=== PATIENT | female | born 1965 | race Caucasian/White ===

== ENCOUNTER 2021-09-18 20:36 | Emergency (ER) | payer BC ==
[~2021-09-18] VITALS: Ht 170.2 cm; Wt 61.0 kg
[~2021-09-18 20:36] MED LIST: ADVIL200 MG PO; ALLEGRA ALLERGY60 MG PO; BENADRYL25 MG PO; BENTYL; BENTYL10 MG PO; CEPHALEXIN500 MG PO; CLARITIN10 M2 OR; COMPAZINE10 MG PO; CYMBALTA20 MG PO; DILAUDID 2MG2 MG/TA1 PO; EFFEXOR XR75 MG PO; ELAVIL25 M1 PO; LOMOTIL2.5 MG PO; LORTAB 7.5-3251 TAB PO; NITROFURANTN100 MG PO; NORCO1 TA1 PO; ONDANSETRON4 MG PO; PEPCID40 MG PO; PHENERGAN25 MG RE; PHENERGAN25 MG/TAB PO; PROVERA5 MG PO; PSEUDOEPHEDR30 MG PO; PYRIDIUM200 MG PO; REGLAN10 MG PO; TAM75CAP PO; TORADOL PO; TRAMADOL HCL50 MG PO; ULTRAM50 M1 PO; XANAX0.25 MG PO; ZANTAC 36010 MG PO; ZYRTEC10 M3 PO
[2021-09-18 22:22] VITALS: BP 112/70
[2021-09-18 22:30] VITALS: BP 117/61
[2021-09-18 23:01] VITALS: BP 132/74
[2021-09-18 23:20] LABS: HEMATOCRIT 40.1 % (37.0-47.0); HEMOGLOBIN 13.9 g/dl (12.0-16.0); IMMATURE GRANULOCYTES 0.2 % (0.0-5.0); MEAN CORPUSCULAR HGB 31.9 pG CALC (26.0-32.0); MEAN CORPUSCULAR HGB CONC 34.7 g/dL CAL (32.0-36.0); NEUT# 3.88 thou/uL (2.00-7.15); RED BLOOD COUNT 4.36 mill/uL (4.20-5.60); RED CELL DISTRI WIDTH 11.5 % (11.5-15.5)
[2021-09-18 23:30] VITALS: BP 124/68
[2021-09-18 23:36] LABS: ALBUMIN 4.4 g/dL (3.2-5.0); ALKALINE PHOSPHATASE 70 u/l (38-126); ANION GAP 17 (6-22 (CALC)); BILIRUBIN, TOTAL 0.2 mg/dL (0.0-1.4); BUN 13 mg/dL (7-17); BUN/CREATININE RATIO 19 (12-20 (CALC)); CARBON DIOXIDE 14 mmol/l (22-30); CHLORIDE 112 mmol/l (95-108); CREATININE 0.7 mg/dL (0.5-1.0); GFR FOR AFR.AMER. > 60 ML/MIN (>=60 (CALC)); GFR OTHER RACES > 60 ML/MIN (>=60 (CALC)); POTASSIUM 3.3 mmol/l (3.5-5.1); SGOT/AST 26 u/l (14-36); SODIUM 140 mmol/l (137-146)
[2021-09-18] MEDS ORDERED: GABAPENTIN100 MG PO (23:40)
[2021-09-18] MEDS ORDERED: PAXLOVID PO (23:43)
[2021-09-19 00:30] VITALS: BP 112/60
[2021-09-19 00:40] VITALS: BP 112/60
== END 2021-09-19 00:40 | disposition home or self-care (01) | DRG 179 ==
LOC: ED 20:36
PROVIDERS: Emergency Medicine
DX: U07.1 COVID-19 (principal); R50.9 Fever, unspecified; R05.9 Cough, unspecified

== ENCOUNTER 2022-03-26 13:27 | Emergency (ER) | payer OTHER ==
[~2022-03-26] VITALS: Ht 170.2 cm; Wt 63.5 kg
[~2022-03-26 13:27] MED LIST changes: +GABAPENTIN100 MG PO; +PAXLOVID PO
[2022-03-26 14:45] LABS: BASO% 1.1 % (0-3); HEMOGLOBIN 12.6 g/dl (12.0-16.0); IMMATURE GRANULOCYTES 0.2 % (0.0-5.0); LYMPH% 23.8 % (15-41); MEAN CELL VOLUME 92.3 fL CALC (80.0-100.0); MEAN CORPUSCULAR HGB 31.4 pG CALC (26.0-32.0); MEAN CORPUSCULAR HGB CONC 34.1 g/dL CAL (32.0-36.0); MONO% 6.9 % (2-13); NEUT# 3.36 thou/uL (2.00-7.15); RED BLOOD COUNT 4.01 mill/uL (4.20-5.60); RED CELL DISTRI WIDTH 11.7 % (11.5-15.5)
[2022-03-26 15:08] LABS: ALBUMIN 4.4 g/dL (3.2-5.0); ALKALINE PHOSPHATASE 71 u/l (38-126); BUN 8 mg/dL (7-17); BUN/CREATININE RATIO 12 (12-20 (CALC)); CHLORIDE 111 mmol/l (95-108); CREATININE 0.6 mg/dL (0.5-1.0); GFR FOR AFR.AMER. > 60 ML/MIN (>=60 (CALC)); GFR OTHER RACES > 60 ML/MIN (>=60 (CALC)); POTASSIUM 3.8 mmol/l (3.5-5.1); SGOT/AST 27 u/l (14-36); SODIUM 142 mmol/l (137-146); TOTAL PROTEIN 7.2 g/dL (6.3-8.2)
[2022-03-26 15:09] LABS: ANION GAP 13 (6-22 (CALC)); CARBON DIOXIDE 22 mmol/l (22-30)
[2022-03-26] MEDS ORDERED: PREDNISONE10 MG PO (15:47)
[2022-03-26] MEDS ORDERED: TAM75CAP PO (15:47)
[2022-03-26] MEDS ORDERED: LEVOCETIRIZINE D5 MG PO (15:47)
[2022-03-26 17:35] VITALS: BP 138/73
== END 2022-03-26 17:37 | disposition home or self-care (01) | DRG 195 ==
LOC: ED 13:27
PROVIDERS: Family Medicine
DX: J10.1 Influenza due to other identified influenza virus with other respiratory manifestations (principal); M25.50 Pain in unspecified joint; Z20.822 Contact with and (suspected) exposure to COVID-19; R07.9 Chest pain, unspecified

== ENCOUNTER 2022-06-29 20:57 | Emergency (ER) | payer OTHER ==
[~2022-06-29] VITALS: Ht 170.2 cm; Wt 135.0 kg
[~2022-06-29 20:57] MED LIST changes: +LEVOCETIRIZINE D5 MG PO; +PREDNISONE10 MG PO
[2022-06-29 21:03] VITALS: BP 144/68
[2022-06-29 22:09] LABS: BASO% 0.4 % (0-3); EOS% 0.4 % (0-8); HEMATOCRIT 42.1 % (37.0-47.0); HEMOGLOBIN 14.1 g/dl (12.0-16.0); IMMATURE GRANULOCYTES 0.3 % (0.0-5.0); LYMPH% 13.1 % (15-41); MEAN CELL VOLUME 92.9 fL CALC (80.0-100.0); MEAN CORPUSCULAR HGB 31.1 pG CALC (26.0-32.0); MEAN CORPUSCULAR HGB CONC 33.5 g/dL CAL (32.0-36.0); MONO% 7.3 % (2-13); NEUT# 5.63 thou/uL (2.00-7.15); NEUT% 78.5 % (42-76); RED BLOOD COUNT 4.53 mill/uL (4.20-5.60); RED CELL DISTRI WIDTH 11.6 % (11.5-15.5)
[2022-06-29 22:14] LABS: ALBUMIN 4.6 g/dL (3.2-5.0); ALKALINE PHOSPHATASE 77 u/l (38-126); ANION GAP 16 (6-22 (CALC)); BUN 9 mg/dL (7-17); BUN/CREATININE RATIO 14 (12-20 (CALC)); CARBON DIOXIDE 26 mmol/l (22-30); CHLORIDE 103 mmol/l (95-108); CREATININE 0.7 mg/dL (0.5-1.0); GFR FOR AFR.AMER. > 60 ML/MIN (>=60 (CALC)); GFR OTHER RACES > 60 ML/MIN (>=60 (CALC)); SGOT/AST 25 u/l (14-36); SODIUM 141 mmol/l (137-146); TOTAL PROTEIN 7.3 g/dL (6.3-8.2)
[2022-06-29 22:19] VITALS: BP 129/73
[2022-06-29 22:20] LABS: BILIRUBIN, TOTAL 0.4 mg/dL (0.02-1.3)
[2022-06-29 22:45] VITALS: BP 135/52
[2022-06-29 23:00] VITALS: BP 132/73
[2022-06-29] MEDS ORDERED: FIORICET PO (23:14)
[2022-06-29 23:15] VITALS: BP 134/66
[2022-06-29] MEDS ORDERED: ONDANSETRON4 MG PO (23:18)
[2022-06-29 23:31] VITALS: BP 116/65
== END 2022-06-29 23:37 | disposition home or self-care (01) | DRG 103 ==
LOC: ED 20:57
PROVIDERS: Emergency Medicine
DX: G43.909 Migraine, unspecified, not intractable, without status migrainosus (principal)

== ENCOUNTER 2022-08-20 11:05 | Emergency (ER) | payer OTHER ==
[2022-08-20] VITALS (20 sets, daily range): BP systolic 109–141; BP diastolic 53–92
[~2022-08-20] VITALS: Ht 170.2 cm; Wt 59.0 kg
[~2022-08-20 11:05] MED LIST changes: +FIORICET PO
[2022-08-20 12:38] LABS: EOS% 3.9 % (0-8); HEMATOCRIT 38.9 % (37.0-47.0); HEMOGLOBIN 12.8 g/dl (12.0-16.0); IMMATURE GRANULOCYTES 0.2 % (0.0-5.0); MEAN CELL VOLUME 94.6 fL CALC (80.0-100.0); MEAN CORPUSCULAR HGB 31.1 pG CALC (26.0-32.0); MEAN CORPUSCULAR HGB CONC 32.9 g/dL CAL (32.0-36.0); MONO% 7.3 % (2-13); NEUT# 2.92 thou/uL (2.00-7.15); NEUT% 60.6 % (42-76); RED BLOOD COUNT 4.11 mill/uL (4.20-5.60); RED CELL DISTRI WIDTH 11.6 % (11.5-15.5)
[2022-08-20 12:41] LABS: ALBUMIN 4.7 g/dL (3.2-5.0); ALKALINE PHOSPHATASE 72 u/l (38-126); ANION GAP 15 (6-22 (CALC)); BUN 7 mg/dL (7-17); BUN/CREATININE RATIO 11 (12-20 (CALC)); CARBON DIOXIDE 22 mmol/l (22-30); CHLORIDE 110 mmol/l (95-108); CREATININE 0.6 mg/dL (0.5-1.0); GFR FOR AFR.AMER. > 60 ML/MIN (>=60 (CALC)); GFR OTHER RACES > 60 ML/MIN (>=60 (CALC)); LIPASE 260 u/l (23-300); POTASSIUM 3.3 mmol/l (3.5-5.1); SGOT/AST 28 u/l (14-36); SODIUM 143 mmol/l (137-146); TOTAL PROTEIN 7.3 g/dL (6.3-8.2)
[2022-08-20 12:42] LABS: BILIRUBIN, TOTAL 0.2 mg/dL (0.02-1.3)
[2022-08-20 15:01] LABS: URINE BILIRUBIN - DIPSTICK NEGATIVE (NEGATIVE); URINE BLOOD DIPSTICK TRACE-INTACT (NEGATIVE); URINE COLOR YELLOW; URINE GLUCOSE - DIPSTICK NEGATIVE (NEGATIVE); URINE KETONE TRACE mg/dL (NEGATIVE); URINE LEUK ESTERASE NEGATIVE (NEGATIVE); URINE NITRITE - DIPSTICK NEGATIVE (Negative); URINE PROTEIN - DIPSTICK NEGATIVE (NEG-TRACE); URINE UROBILINOGEN - DIPSTICK 0.2 E.U./dL (0.2)
[2022-08-20] MEDS ORDERED: ONDANSETRON4 MG PO (15:31)
[2022-08-20] MEDS ORDERED: DICYCLOMINE10 MG PO (15:31)
[2022-08-20] MEDS ORDERED: AMOX/K CLAV875 M1 PO (15:31)
== END 2022-08-20 16:30 | disposition home or self-care (01) | DRG 392 ==
LOC: ED 11:05
PROVIDERS: Nurse Practitioner
DX: R10.84 Generalized abdominal pain (principal); K58.9 Irritable bowel syndrome, unspecified

== ENCOUNTER 2022-09-29 18:13 | Emergency (ER) | payer OTHER ==
[~2022-09-29] VITALS: Ht 167.6 cm; Wt 56.6 kg
[~2022-09-29 18:13] MED LIST changes: +AMOX/K CLAV875 M1 PO; +DICYCLOMINE10 MG PO
[2022-09-29 19:50] VITALS: BP 134/69
[2022-09-29 20:00] VITALS: BP 121/68
[2022-09-29 20:15] VITALS: BP 120/60
[2022-09-29] MEDS ORDERED: PROMETHAZINE HY25 M1 PO (20:28)
[2022-09-29] MEDS ORDERED: TOPIRAMATE25 MG PO (20:28)
[2022-09-29] MEDS ORDERED: IMITREX100 MG PO (20:29)
[2022-09-29 20:33] LABS: EOS% 7.1 % (0-8); HEMATOCRIT 35.5 % (37.0-47.0); HEMOGLOBIN 11.8 g/dl (12.0-16.0); LYMPH% 29.4 % (15-41); MEAN CELL VOLUME 92.7 fL CALC (80.0-100.0); MEAN CORPUSCULAR HGB 30.8 pG CALC (26.0-32.0); MEAN CORPUSCULAR HGB CONC 33.2 g/dL CAL (32.0-36.0); NEUT# 2.55 thou/uL (2.00-7.15); NEUT% 53.5 % (42-76); RED BLOOD COUNT 3.83 mill/uL (4.20-5.60); RED CELL DISTRI WIDTH 11.7 % (11.5-15.5)
[2022-09-29 20:44] LABS: ALBUMIN 3.9 g/dL (3.2-5.0); ALKALINE PHOSPHATASE 61 u/l (38-126); BUN 11 mg/dL (7-17); BUN/CREATININE RATIO 14 (12-20 (CALC)); CARBON DIOXIDE 20 mmol/l (22-30); CHLORIDE 113 mmol/l (95-108); CREATININE 0.7 mg/dL (0.5-1.0); GFR FOR AFR.AMER. > 60 ML/MIN (>=60 (CALC)); GFR OTHER RACES > 60 ML/MIN (>=60 (CALC)); LIPASE 200 u/l (23-300); SGOT/AST 19 u/l (14-36); SODIUM 141 mmol/l (137-146); TOTAL PROTEIN 6.2 g/dL (6.3-8.2)
[2022-09-29 20:46] LABS: ANION GAP 12 (6-22 (CALC)); BILIRUBIN, TOTAL 0.3 mg/dL (0.02-1.3); POTASSIUM 4.1 mmol/l (3.5-5.1)
[2022-09-29 22:12] VITALS: BP 140/56
[2022-09-29 22:23] LABS: URINE COLOR YELLOW; URINE GLUCOSE - DIPSTICK NEGATIVE (NEGATIVE)
[2022-09-29 22:24] LABS: URINE BILIRUBIN - DIPSTICK NEGATIVE (NEGATIVE); URINE BLOOD DIPSTICK NEGATIVE (NEGATIVE); URINE KETONE Negative (NEGATIVE); URINE LEUK ESTERASE NEGATIVE (NEGATIVE); URINE NITRITE - DIPSTICK NEGATIVE (Negative); URINE PROTEIN - DIPSTICK NEGATIVE (NEG-TRACE); URINE SPECIFIC GRAVITY <=1.005; URINE UROBILINOGEN - DIPSTICK 0.2 E.U./dL (0.2)
[2022-09-29 23:38] VITALS: BP 125/59
[2022-09-29] MEDS ORDERED: LEVSIN/SL0.125 MG SL (23:59)
[2022-09-30] VITALS: BP 117/61
[2022-09-30 00:15] VITALS: BP 117/61
== END 2022-09-30 00:30 | disposition home or self-care (01) | DRG 392 ==
LOC: ED 18:13
PROVIDERS: Family Medicine
DX: R10.31 Right lower quadrant pain (principal); K58.9 Irritable bowel syndrome, unspecified
CPT/HCPCS: Q9967

== ENCOUNTER 2022-10-30 10:49 | Emergency (ER) | payer OTHER ==
[~2022-10-30] VITALS: Ht 167.6 cm; Wt 54.4 kg
[2022-10-30] VITALS (10 sets, daily range): BP systolic 112–140; BP diastolic 53–76
[~2022-10-30 10:49] MED LIST changes: +IMITREX100 MG PO; +LEVSIN/SL0.125 MG SL; +PROMETHAZINE HY25 M1 PO; +TOPIRAMATE25 MG PO
[2022-10-30 11:21] LABS: BASO% 1.3 % (0-3); EOS% 8.9 % (0-8); HEMATOCRIT 35.8 % (37.0-47.0); HEMOGLOBIN 12.1 g/dl (12.0-16.0); IMMATURE GRANULOCYTES 0.2 % (0.0-5.0); LYMPH% 27.7 % (15-41); MEAN CELL VOLUME 91.8 fL CALC (80.0-100.0); MEAN CORPUSCULAR HGB CONC 33.8 g/dL CAL (32.0-36.0); MONO% 8.9 % (2-13); NEUT# 2.37 thou/uL (2.00-7.15); RED BLOOD COUNT 3.9 mill/uL (4.20-5.60); RED CELL DISTRI WIDTH 11.5 % (11.5-15.5)
[2022-10-30] MEDS ORDERED: CLARITIN-D1 TA4 PO (11:26)
[2022-10-30] MEDS ORDERED: ADVIL200 MG PO (11:28)
[2022-10-30 11:32] LABS: ALKALINE PHOSPHATASE 69 u/l (38-126); ANION GAP 15 (6-22 (CALC)); BILIRUBIN, TOTAL 0.3 mg/dL (0.02-1.3); BUN 9 mg/dL (7-17); BUN/CREATININE RATIO 12 (12-20 (CALC)); CARBON DIOXIDE 19 mmol/l (22-30); CHLORIDE 110 mmol/l (95-108); CREATININE 0.8 mg/dL (0.5-1.0); GFR FOR AFR.AMER. > 60 ML/MIN (>=60 (CALC)); GFR OTHER RACES > 60 ML/MIN (>=60 (CALC)); LIPASE 173 u/l (23-300); POTASSIUM 3.8 mmol/l (3.5-5.1); SGOT/AST 26 u/l (14-36); SODIUM 140 mmol/l (137-146); TOTAL PROTEIN 6.8 g/dL (6.3-8.2)
[2022-10-30 13:06] LABS: URINE BILIRUBIN - DIPSTICK Negative (NEGATIVE); URINE BLOOD DIPSTICK Trace-intact (NEGATIVE); URINE GLUCOSE - DIPSTICK Negative (NEGATIVE); URINE KETONE Negative (NEGATIVE); URINE LEUK ESTERASE Negative (NEGATIVE); URINE NITRITE - DIPSTICK Negative (Negative); URINE PROTEIN - DIPSTICK Negative (NEG-TRACE); URINE UROBILINOGEN - DIPSTICK 0.2 E.U./dL (0.2)
[2022-10-30 13:08] LABS: URINE COLOR Yellow
== END 2022-10-30 13:50 | disposition home or self-care (01) | DRG 392 ==
LOC: ED 10:49
PROVIDERS: Family Medicine
DX: R10.31 Right lower quadrant pain (principal)

== ENCOUNTER 2023-09-05 14:27 | Emergency (ER) | payer OTHER ==
[~2023-09-05] VITALS: Ht 170.2 cm; Wt 56.7 kg
[~2023-09-05 14:27] MED LIST changes: +CLARITIN-D1 TA4 PO; +DICYCLOMINE HYD10 MG PO; +MIRALAX17 GM PO; +PROTONIX40 M2 PO
[2023-09-05] MEDS ORDERED: FLEXERIL5 M1 PO (14:47)
[2023-09-05] MEDS ORDERED: predniSONE 20 MG/TAB PO ONE (15:10)
[2023-09-05] MEDS ORDERED: ORPHENADRINE CITRATE 30 MG/ML AMP IM ONE (15:10)
[2023-09-05] MEDS ORDERED: ONDANSETRON 4 MG/TAB ODT SL ONE (15:10)
[2023-09-05] MEDS ORDERED: KETOROLAC TROMETHAMINE 30 MG/ML SDV IM ONE (15:10)
[2023-09-05 15:34] LABS: URINE BILIRUBIN - DIPSTICK Negative (NEGATIVE); URINE BLOOD DIPSTICK Trace-intact (NEGATIVE); URINE GLUCOSE - DIPSTICK Negative (NEGATIVE); URINE KETONE Negative (NEGATIVE); URINE LEUK ESTERASE Negative (NEGATIVE); URINE NITRITE - DIPSTICK Negative (Negative); URINE PROTEIN - DIPSTICK Negative (NEG-TRACE); URINE SPECIFIC GRAVITY <=1.005; URINE UROBILINOGEN - DIPSTICK 0.2 E.U./dL (0.2)
[2023-09-05 15:35] LABS: URINE COLOR Yellow
[2023-09-05] MEDS ORDERED: METHOCARBAMOL500 MG PO (16:43)
[2023-09-05] MEDS ORDERED: NAPROXEN500 MG PO (16:43)
[2023-09-05] MEDS ORDERED: PREDNISONE10 MG PO (16:43)
[2023-09-05 16:55] VITALS: BP 128/59
== END 2023-09-05 17:17 | disposition home or self-care (01) ==
LOC: ED 14:27
PROVIDERS: Nurse Practitioner
DX: M54.16 Radiculopathy, lumbar region (principal)

== ENCOUNTER 2024-03-09 21:48 | Emergency (ER) | payer OTHER ==
[~2024-03-09] VITALS: Ht 170.2 cm; Wt 57.0 kg
[~2024-03-09 21:48] MED LIST changes: +FLEXERIL5 M1 PO; +METHOCARBAMOL500 MG PO; +NAPROXEN500 MG PO
[2024-03-09] MEDS ORDERED: SODIUM CHLORIDE 0.9% 1,000 ML IV STA (22:33)
[2024-03-09] MEDS ORDERED: PROMETHAZINE HCL 25 MG/ML AMP IV ONE (22:35)
[2024-03-09] MEDS ORDERED: KETOROLAC TROMETHAMINE 30 MG/ML SDV IV ONE (22:35)
[2024-03-09] MEDS ORDERED: MULTIPLE VITAMIN 10 ML,THIAMINE HCL 100 MG in SODIUM CHLORIDE 0.9% 1,000 ML IV ONE (22:55)
[2024-03-09 22:58] LABS: EOS% 4.5 % (0-8); HEMATOCRIT 35.6 % (37.0-47.0); HEMOGLOBIN 11.8 g/dl (12.0-16.0); IMMATURE GRANULOCYTES 0.2 % (0.0-5.0); LYMPH% 29.9 % (15-41); MEAN CELL VOLUME 94.4 fL CALC (80.0-100.0); MEAN CORPUSCULAR HGB 31.3 pG CALC (26.0-32.0); MEAN CORPUSCULAR HGB CONC 33.1 g/dL CAL (32.0-36.0); NEUT# 2.71 thou/uL (2.00-7.15); NEUT% 55.4 % (42-76); RED BLOOD COUNT 3.77 mill/uL (4.20-5.60); RED CELL DISTRI WIDTH 11.8 % (11.5-15.5)
[2024-03-09 22:59] LABS: ALBUMIN 4.2 g/dL (3.2-5.0); CREATININE 1.2 mg/dL (0.5-1.0); POTASSIUM 3.9 mmol/l (3.5-5.1); TOTAL PROTEIN 6.7 g/dL (6.3-8.2)
[2024-03-09 23:00] LABS: BILIRUBIN, TOTAL 0.3 mg/dL (0.02-1.3)
[2024-03-10 01:06] LABS: URINE BILIRUBIN - DIPSTICK Negative (NEGATIVE); URINE BLOOD DIPSTICK Negative (NEGATIVE); URINE GLUCOSE - DIPSTICK Negative (NEGATIVE); URINE KETONE Negative (NEGATIVE); URINE LEUK ESTERASE Negative (NEGATIVE); URINE NITRITE - DIPSTICK Negative (Negative); URINE PH 7.5 (4.5-8.0); URINE PROTEIN - DIPSTICK Negative (NEG-TRACE); URINE SPECIFIC GRAVITY 1.015; URINE UROBILINOGEN - DIPSTICK 0.2 E.U./dL (0.2)
[2024-03-10 01:17] LABS: URINE COLOR Yellow
[2024-03-10 02:02] VITALS: BP 127/66
== END 2024-03-10 02:02 | disposition home or self-care (01) | DRG 392 ==
LOC: ED 21:48
PROVIDERS: Family Medicine
DX: R10.12 Left upper quadrant pain (principal); R11.0 Nausea; R06.02 Shortness of breath; R53.83 Other fatigue; K58.9 Irritable bowel syndrome, unspecified
CPT/HCPCS: J2550; J3411; Q9967

== ENCOUNTER 2024-04-14 14:12 | Emergency (ER) | payer OTHER ==
[~2024-04-14] VITALS: Ht 170.2 cm; Wt 56.6 kg
[2024-04-14] MEDS ORDERED: methylPREDNISolone SODIUM SUCC 125 MG/2 ML SDV IM ONE (14:30)
[2024-04-14] MEDS ORDERED: ONDANSETRON 4 MG/TAB ODT SL ONE (14:30)
[2024-04-14] MEDS ORDERED: FAMOTIDINE 20 MG/TAB PO ONE (14:30)
[2024-04-14] MEDS ORDERED: DiphenhydrAMINE HCL 50 MG/ML SDV IM ONE ×2 (14:30→14:35)
[2024-04-14] MEDS ORDERED: OSELTAMIVIR PHOSPHATE 75 MG/TAB CAP PO ONE (15:35)
[2024-04-14] MEDS ORDERED: ZOFRAN4 MG/TAB PO (15:46)
[2024-04-14] MEDS ORDERED: ZPAK PO (15:46)
[2024-04-14] MEDS ORDERED: PREDNISONE20 MG PO (15:46)
[2024-04-14 15:51] VITALS: BP 122/85
== END 2024-04-14 15:51 | disposition home or self-care (01) | DRG 195 ==
LOC: ED 14:12
DX: J10.1 Influenza due to other identified influenza virus with other respiratory manifestations (principal); Z20.822 Contact with and (suspected) exposure to COVID-19
CPT/HCPCS: J1200

== ENCOUNTER 2024-04-20 19:49 | Emergency (ER) | payer OTHER ==
[~2024-04-20] VITALS: Ht 170.2 cm; Wt 56.0 kg
[~2024-04-20 19:49] MED LIST changes: +PREDNISONE20 MG PO; +ZOFRAN4 MG/TAB PO; +ZPAK PO
[2024-04-20] MEDS ORDERED: PROMETHAZINE HCL 25 MG/ML AMP IV ONE (20:40)
[2024-04-20] MEDS ORDERED: SODIUM CHLORIDE 0.9% 1,000 ML IV STA (20:40)
[2024-04-20] MEDS ORDERED: KETOROLAC TROMETHAMINE 30 MG/ML SDV IV ONE (20:40)
[2024-04-20 21:18] LABS: BASO% 0.2 % (0-3); HEMATOCRIT 35.3 % (37.0-47.0); HEMOGLOBIN 11.7 g/dl (12.0-16.0); IMMATURE GRANULOCYTES 0.2 % (0.0-5.0); LYMPH% 9.3 % (15-41); MEAN CELL VOLUME 93.4 fL CALC (80.0-100.0); MEAN CORPUSCULAR HGB CONC 33.1 g/dL CAL (32.0-36.0); MONO% 6.7 % (2-13); NEUT# 4.14 thou/uL (2.00-7.15); NEUT% 83.6 % (42-76); RED BLOOD COUNT 3.78 mill/uL (4.20-5.60); RED CELL DISTRI WIDTH 11.7 % (11.5-15.5)
[2024-04-20 21:24] LABS: ALBUMIN 3.8 g/dL (3.2-5.0); BILIRUBIN, TOTAL 0.4 mg/dL (0.02-1.3); CREATININE 0.8 mg/dL (0.5-1.0); TOTAL PROTEIN 6.2 g/dL (6.3-8.2)
[2024-04-20 21:35] LABS: POTASSIUM 2.7 mmol/l (3.5-5.1)
[2024-04-20] MEDS ORDERED: OSELTAMIVIR PHOSPHATE 75 MG/TAB CAP PO ONE (21:55)
[2024-04-20] MEDS ORDERED: SODIUM CHLORIDE 0.9% 1,000 ML IV ONE (21:55)
[2024-04-20] MEDS ORDERED: POTASSIUM CHLORIDE 20MEQ 100 ML IV ONE (21:55)
[2024-04-20] MEDS ORDERED: POTASSIUM CHLORIDE 20 MEQ/TAB PO ONE (21:55)
[2024-04-21 00:16] LABS: URINE BILIRUBIN - DIPSTICK Negative (NEGATIVE); URINE BLOOD DIPSTICK Trace-lysed (NEGATIVE); URINE COLOR Yellow; URINE GLUCOSE - DIPSTICK Negative (NEGATIVE); URINE KETONE Trace mg/dL (NEGATIVE); URINE LEUK ESTERASE Negative (NEGATIVE); URINE NITRITE - DIPSTICK Negative (Negative); URINE PH 6.5 (4.5-8.0); URINE PROTEIN - DIPSTICK Negative (NEG-TRACE); URINE UROBILINOGEN - DIPSTICK 0.2 E.U./dL (0.2)
[2024-04-21] MEDS ORDERED: TAM75CAP PO (00:22)
[2024-04-21] MEDS ORDERED: POT CHLORIDE20 ME2 PO (00:22)
[2024-04-21] MEDS ORDERED: PROMETHAZINE HY25 M1 PO (00:22)
[2024-04-21 01:48] VITALS: BP 96/55
== END 2024-04-21 01:48 | disposition home or self-care (01) | DRG 866 ==
LOC: ED 19:49
PROVIDERS: Family Medicine
DX: J10.2 Influenza due to other identified influenza virus with gastrointestinal manifestations (principal); E87.6 Hypokalemia; K58.9 Irritable bowel syndrome, unspecified; Z20.822 Contact with and (suspected) exposure to COVID-19
CPT/HCPCS: J2550; J3480